=== PATIENT | male | born 1970 | race African-American/Black ===

== ENCOUNTER → 2020-10-10 | Outpatient (CLI) | payer OTHER ==
--- NOTE | 2020-10-10 17:18 | RAD ---
EXAM: Left knee, 2 views. HISTORY: Instability. COMPARISON: None. FINDINGS: 2 views of the left knee are obtained. There is no fracture, dislocation or subluxation. Th ere is no joint effusion. IMPRESSION: No acute osseous finding. Electronically signed by: Daya Castillo MD (10/10/2020 5:16 PM) [email or web address]
--- NOTE | 2020-10-10 17:20 | RAD ---
EXAM: Lumbar spine, 2 views. HISTORY: Pain. COMPARISON: None. FINDINGS: 2 views of the lumbar spine are obtained. There is degenerative endplate remodeling with di sc space narrowing, vacuum phenomenon and facet arthropathy at L5-S1. There is endplate remodeling at the remainder of the lumbar and lower thoracic levels. There is no fracture. IMPRESSION: Multilevel degenerative change, primarily at the lumbosacral junction. Electronically signed by: Daya Castillo MD (10/10/2020 5:18 PM) [email or web address]
== END ==
LOC: RAD 12:53
PROVIDERS: ATTEND Surgery
DX: M47.816 Spondylosis without myelopathy or radiculopathy, lumbar region (principal)
CPT/HCPCS: 72100; 73560